=== PATIENT | female | born 2000 | race Caucasian/White ===

== ENCOUNTER 2024-03-08 04:46 | Emergency (ER) | payer OTHER ==
[2024-03-08 04:54] VITALS: BP 97/69; PULSE 82; RESP 18; TEMP 97.7; BMI 31.7
== END 2024-03-08 06:05 | disposition home or self-care (01) ==
LOC: JER 04:46
DX: H66.92 Otitis media, unspecified, left ear (principal); H92.02 Otalgia, left ear
CPT/HCPCS: 99283-25

== ENCOUNTER 2024-03-09 07:56 | Emergency (ER) | payer OTHER ==
[2024-03-09 08:04] VITALS: BP 112/72; PULSE 78; RESP 18; TEMP 98.6; BMI 31.7
== END 2024-03-09 08:33 | disposition home or self-care (01) ==
LOC: JERFT 07:56
DX: H66.92 Otitis media, unspecified, left ear (principal); H60.92 Unspecified otitis externa, left ear; H92.02 Otalgia, left ear
CPT/HCPCS: 99283-25

== ENCOUNTER 2025-01-11 06:46 | Day surgery (SDC) | payer OTHER ==
[2025-01-04 11:48] VITALS: BMI 35.9
[2025-01-11] MEDS ORDERED: LIDOCAINE 1%/EPI 1:100000 (20 ML MULTI DOSE VIAL) ONE (10:23)
[2025-01-11] MEDS ORDERED: ACETAMINOPHEN INJECTION 100 ML ONE (10:41)
[2025-01-11] MEDS: OXYMETAZOLINE 0.05% NASAL SOLUTION 15 ML BOTTLE NS ONE (11:00)
[2025-01-11] MEDS ORDERED: PROPOFOL 40 ML ONE (11:04)
[2025-01-11] MEDS: LIDOCAINE 1%/EPI 1:100000 (20 ML MULTI DOSE VIAL) IJ ONE (11:05)
[2025-01-11] MEDS ORDERED: PROPOFOL 20 ML ONE (12:02)
[2025-01-11] MEDS ORDERED: SUGAMMADEX SODIUM 200 MG/2 ML VIAL ONE (12:07)
[2025-01-11] MEDS ORDERED: ONDANSETRON 4 MG/2 ML VIAL ONE (12:11)
[2025-01-11] MEDS ORDERED: KETOROLAC TROMETHAMINE 30 MG/1 ML VIAL ONE (12:11)
[2025-01-11 14:26] VITALS: RESP 16
[2025-01-11] MEDS ORDERED: LACTATED RINGERS SOLUTION 1,000 ML IV SCH (14:30)
[2025-01-11 15:04] VITALS: BP 102/53; PULSE 76; TEMP 97.7
== END 2025-01-11 15:05 | disposition home or self-care (01) ==
LOC: JASU-SURG 06:46 → MERGE 08:00 → JASU-SURG 15:05
PROVIDERS: ATTEND Otolaryngology
PROC: 09BM8ZZ Excision of Nasal Septum, Via Natural or Artificial Opening Endoscopic (ICD-10-PCS; principal; 2025-01-11 10:45)
DX: J34.2 Deviated nasal septum (principal); J34.3 Hypertrophy of nasal turbinates; R09.81 Nasal congestion
CPT/HCPCS: 81025; 88304-TC; 88311-TC; 94760

== ENCOUNTER 2025-03-02 10:57 | Emergency (ER) | payer OTHER ==
[2025-03-02 11:03] VITALS: BP 115/67; PULSE 87; RESP 18; TEMP 98; BMI 35.9
== END 2025-03-02 11:55 | disposition home or self-care (01) ==
LOC: JERFT 10:57
DX: J32.9 Chronic sinusitis, unspecified (principal); R09.81 Nasal congestion; H92.02 Otalgia, left ear
CPT/HCPCS: 99283-25